=== PATIENT | female | born 1970 | race Caucasian/White ===

== ENCOUNTER 2017-06-22 22:30 | Emergency (ER) | payer SELFPAY ==
[~2017-06-22] VITALS: Ht 162.6 cm; Wt 63.5 kg
--- NOTE | 2017-06-22 22:30 | NUR ---
Patient was BIB [facility] and taken to [facility].
[2017-06-22 22:31] VITALS: BP 116/94
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
--- NOTE | 2017-06-22 22:45 | NUR ---
Patient being evaluated by physician at bedside.
[2017-06-22] MEDS ORDERED: BACITRACIN OINT 500 UNITS/GM PKT TP ONE (23:10)
--- NOTE | 2017-06-22 23:30 | NUR ---
PATIENT [facility] POLICE DEPT. PATIENT EXAMINED BY DR. PECK. PATIENT MEDICALLY CLEARED AND RELEASED IN CUSTODY IN STABLE CONDITION. ORIGINAL PRE-BOOK FORM GIVEN TO OFFICER RAVI.
--- NOTE | 2017-06-22 23:30 | NUR ---
Patient discharged with v/s stable. Written and verbal after care instructions given and explained. Patient verbalized understanding. Ambulatory with steady gait. All questions addressed prior to discharge. Advised to follow up with PMD.
[2017-06-22 23:33] VITALS: BP 116/94
== END 2017-06-22 23:30 ==
LOC: MED 22:30
DX: Z02.89 Encounter for other administrative examinations (principal); S70.312A Abrasion, left thigh, initial encounter; S40.812A Abrasion of left upper arm, initial encounter; V73.5XXA Driver of bus injured in collision with car, pick-up truck or van in traffic accident, initial encounter; Y93.I9 Activity, other involving external motion; Y92.488 Other paved roadways as the place of occurrence of the external cause; Y99.8 Other external cause status
CPT/HCPCS: 90471; 90715; 99283